=== PATIENT | female | born 1995 | race American Indian/Alaskan Native ===

== ENCOUNTER 2019-03-31 00:40 | Inpatient (IN) | payer MEDICAID ==
[2019-03-31] MEDS ORDERED: LACTATED RINGERS 1,000 ML ONE (00:54)
[2019-03-31] MEDS ORDERED: AMPICILLIN/NS 2 GM/100 ML 2 GM/100 ML BAG IV ONE ×2 (00:55→01:02)
[2019-03-31] MEDS ORDERED: BRETHINE IVP PRN (01:02)
[2019-03-31] MEDS ORDERED: XYLOCAINE 2% INFILTRATI ONE (01:02)
[2019-03-31] MEDS ORDERED: SUBLIMAZE IV PRN (01:02)
[2019-03-31] MEDS ORDERED: BRETHINE SUB-Q PRN (01:02)
[2019-03-31] MEDS ORDERED: MINERAL OIL PO PRN (01:02)
[2019-03-31] MEDS ORDERED: SUBLIMAZE ONE ×2 (01:08→01:09)
[2019-03-31 01:33] LABS: Hematocrit 30.3 % (30.3-42.9); Hemoglobin 9.4 gm/dl (10.1-14.3); Mean Corpuscular HGB Conc 31 % (30-34); Mean Corpuscular Volume 77 fl (79-97); Platelet Count 356 K/mm3 (140-440); Red Blood Count 3.96 M/mm3 (3.65-5.03); Red Cell Distribution Width 19.9 % (13.2-15.2)
[2019-03-31] MEDS ORDERED: PITOCin/NS 20 UNIT/1000ML DRIP 20 UNITS/1,000 ML BAG IV SCH (02:00)
[2019-03-31] MEDS ORDERED: LACTATED RINGERS 1,000 ML IV SCH (02:00)
[2019-03-31 02:05] LABS: Hepatitis C Virus Antibody Non-Reactive (NonReactive)
--- NOTE | 2019-03-31 02:09 | History and Physical Report ---
History of Present Illness Date of examination: 03/31/19 Date of admission: 03/31/19 00:47 Chief complaint: contractions History of present illness: 23y/o @ 39+3 weeks presents with regular uterine contractions and advanced dilation. She denies leakage of fluid. The patient is a walk in patient from [facility] however records are not available. GBS status is unknown. Past History Past Medical History: other (obesity) Past Surgical History: no surgical history Social history: single - Obstetrical History Expected Date of Delivery: 04/04/19 Actual Gestation: 39 Week(s) 3 Day(s) : 2 Para: 1 Hx # Term Pregnancies: 1 Number of Pregnancies: 0 Spontaneous Abortions: 0 Induced : 0 Number of Living Children: 1 Medications and Allergies Allergies Allergy/AdvReac Type Severity Reaction Status Date / Time No Known Allergies Allergy Verified 03/31/19 00:59 Home Medications Medication Instructions Recorded Confirmed Last Taken Type Sulfamethoxazole/Trimethoprim 1 each PO BID #20 tablet 05/24/15 Unknown Rx [Bactrim Ds] Active Meds: Active Medications Ephedrine Sulfate (Ephedrine Sulfate) 10 mg IV Q2M PRN PRN Reason: Hypotension Fentanyl (Sublimaze) 100 mcg IV Q2H PRN PRN Reason: Labor Pain Ampicillin Sodium (Ampicillin/Ns 1 Gm/50 Ml) 1 gm in 50 mls @ 100 mls/hr IV Q4HR LIONEL; Protocol Lactated Ringer's (Lactated Ringers) 1,000 mls @ 125 mls/hr IV DIRECT LIONEL Oxytocin/Sodium Chloride (Pitocin/Ns 20 Unit/1000ml Drip) 20 units in 1,000 mls @ 125 mls/hr IV DIRECT LIONEL Mineral Oil (Mineral Oil) 30 ml PO QHS PRN PRN Reason: Constipation Terbutaline Sulfate (Brethine) 0.25 mg SUB-Q ONCE PRN PRN Reason: Hyperstimulation/Hypertonicity Terbutaline Sulfate (Brethine) 0.25 mg IVP ONCE PRN PRN Reason: Hyperstimulation/Hypertonicity Review of Systems All systems: negative Genitourinary: contractions, no leakage of fluid - Vital Signs Vital signs: Vital Signs Pulse BP 82 133/64 03/31/19 01:34 03/31/19 01:34 Temp Pulse Resp BP Pulse Ox 82 133/64 03/31/19 01:34 03/31/19 01:34 - Physical Exam Breasts: Positive: deferred Cardiovascular: Regular rate Lungs: Positive: Clear to auscultation Results Result Diagrams: 03/31/19 01:02 Abnormal lab results 03/31/19 Range/Units 01:02 WBC 12.8 H (4.5-11.0) K/mm3 Hgb 9.4 L (10.1-14.3) gm/dl MCV 77 L (79-97) fl MCH 24 L (28-32) pg RDW 19.9 H (13.2-15.2) % All other labs normal. Assessment and Plan - Patient Problems (1) Active labor at term Current Visit: Yes Status: Acute Plan to address problem: admit to L&D
[2019-03-31 02:34] LABS: Amphetamine Screen,Urine PRESUMPTIVE NEGATIVE; Benzodiazepines Screen,Urine PRESUMPTIVE NEGATIVE; Cannabinoid Screen,Urine PRESUMPTIVE NEGATIVE; Cocaine Screen,Urine PRESUMPTIVE NEGATIVE; Methadone Screen,Urine PRESUMPTIVE NEGATIVE; Opiate Screen,Urine PRESUMPTIVE NEGATIVE
[2019-03-31] MEDS ORDERED: NARCAN 2 MG/2 ML IV PRN (02:56)
--- NOTE | 2019-03-31 02:59 | Anesthesia Day of Surgery ---
Anesthesia Day of Surgery - Day of Surgery Patient Examined: Yes Patient H&P Reviewed: Yes Patient is NPO: Yes Beta Blockers: No Cardiac Clearance: No Pulmonary Clearance: No Rodney's Test: N/A
[2019-03-31] MEDS ORDERED: fentaNYL-BUPIV 2 MCG/ML-0.125% 200 MCG/100 ML BAG EPIDURAL SCH (03:00)
--- NOTE | 2019-03-31 03:00 | Anesthesia Consultation ---
Anesthesia Consult and Med Hx Date of service: 03/31/19 - Airway Anesthetic Teeth Evaluation: Good ROM Head & Neck: Adequate Mental/Hyoid Distance: Adequate Mallampati Class: Class III Intubation Access Assessment: Probably Good - Pulmonary Exam CTA: Yes - Cardiac Exam Cardiac Exam: RRR - Pre-Operative Health Status ASA Pre-Surgery Classification: ASA3 Proposed Anesthetic Plan: Epidural - Pulmonary Hx Smoking: No Hx Asthma: No Hx Respiratory Symptoms: No SOB: No COPD: No Home Oxygen Therapy: No Hx Pneumonia: No Hx Sleep Apnea: No - Cardiovascular System Hx Hypertension: No Hx Coronary Artery Disease: No Hx Heart Attack/AMI: No Hx Angina: No Hx Percutaneous Transluminal Coronary Angioplasty (PTCA): No Hx Cardia Arrhythmia: No Hx Pacemaker: No Hx Internal Defibrillator: No Hx Valvular Heart Disease: No Hx Heart Murmur: No Hx Peripheral Vascular Disease: No - Central Nervous System Hx Neuromuscular Disorder: No Hx Seizures: No CVA: No Hx Back Pain: Yes Hx Psychiatric Problems: No - Gastrointestinal Hx Ulcer: No Hx Gastroesophageal Reflux Disease: Yes - Endocrine Hx Renal Disease: No Hx End Stage Renal Disease: No Hx Cirrhosis: No Hx Liver Disease: No Hx Insulin Dependent Diabetes: No Hx Non-Insulin Dependent Diabetes: No Hx Thyroid Disease: No Hx Hypothyroidism: No Hx Hyperthyroidism: No - Hematic Hx Anemia: No Hx Sickle Cell Disease: No - Other Systems Hx Alcohol Use: No Hx Substance Use: No Hx Cancer: No Hx Obesity: Yes
[2019-03-31] MEDS ORDERED: PITOCin/NS 30 UNIT/500ML 30,000 MILLIUNITS/500 ML BAG IV ONE (03:32)
[2019-03-31] MEDS ORDERED: TYLENOL PO PRN (03:57)
[2019-03-31] MEDS ORDERED: DULCOLAX PR PRN (03:57)
[2019-03-31] MEDS ORDERED: TUCKS PAD TP PRN (03:57)
[2019-03-31] MEDS ORDERED: ZOFRAN IV PRN (03:57)
[2019-03-31] MEDS ORDERED: LANSINOH TP PRN (03:57)
[2019-03-31] MEDS ORDERED: PHENERGAN PO PRN (03:57)
[2019-03-31] MEDS ORDERED: PHENERGAN PR PRN (03:57)
[2019-03-31] MEDS ORDERED: BENADRYL PO PRN (03:57)
[2019-03-31] MEDS ORDERED: MILK OF MAGNESIA PO PRN (03:57)
--- NOTE | 2019-03-31 03:57 | Procedure Note ---
OB Delivery Note - Delivery Date of Delivery: 03/31/19 Surgeon: HERRERA KHALIL Estimated blood loss: 200cc - Vaginal Delivery presentation: vertex Delivery position: OA Delivery augmentation: rupture of membranes, pitocin Delivery monitor: external FHT Route of delivery: Delivery placenta: spontaneous Delivery cord: 3 umbilical vessels Episiotomy: none Delivery laceration: none Anesthesia: epidural Delivery comments: The patient progressed to complete complete +2 and pushed to deliver a liveborn male infant with Apgars of 9 and 9 weight 9 lbs. 9 oz. After delivery of head the shoulder was delivered with facilitation of the Liat maneuver. The cord was clamped and cut 2 and the was bulb suctioned. He was placed on the warmer for further evaluation. The placenta delivered spontaneously intact with a three-vessel cord. No lacerations were noted. Estimated blood loss 200 mL - Infant A at 1 minute: 9 at 5 minutes: 9 Infant Gender: Male (weight 9 lbs. 9 oz.)
[2019-03-31] MEDS ORDERED: SODIUM CHLORIDE FLUSH SYRINGE 10 ML IV PRN (04:00)
[2019-03-31] MEDS: IBUPROFEN PO SCH ×3 (04:46→20:19)
[2019-03-31] MEDS ORDERED: AMPICILLIN/NS 1 GM/50 ML 1 GM/50 ML BAG IV SCH (05:03)
[2019-03-31] MEDS: NORCO 5/325 PO PRN ×3 (06:24→20:18)
[2019-03-31 17:07] LABS: Hematocrit 25.4 % (30.3-42.9); Hemoglobin 7.9 gm/dl (10.1-14.3)
[2019-04-01] MEDS: IBUPROFEN PO SCH ×2 (01:57→13:53)
[2019-04-01] MEDS: NORCO 5/325 PO PRN ×2 (01:57→08:32)
--- NOTE | 2019-04-01 12:02 | Progress Note ---
Assessment and Plan - Patient Problems (1) Active labor at term Current Visit: Yes Status: Acute Plan to address problem: routine care discharge home tomorrow Subjective - Subjective Date of service: 04/01/19 Interval history: Patient without difficulty. Pain is better controlled Patient reports: appetite normal, voiding normally, pain well controlled : doing well, nursing well Objective - Vital Signs Latest vital signs: Vital Signs Temp Pulse Resp BP BP Pulse Ox 04/01/19 08:00 98.1 F 79 18 130/66 04/01/19 01:57 18 04/01/19 00:30 98.7 F 78 18 121/78 03/31/19 20:19 18 03/31/19 20:18 18 03/31/19 20:00 98.7 F 70 18 114/78 03/31/19 15:41 98.1 F 80 20 128/78 99 03/31/19 12:02 98.1 F 85 20 125/61 99 Intake and Output 03/31/19 04/01/19 04/01/19 22:59 06:59 14:59 Intake Total 540 600 360 Balance 540 600 360 Intake: Oral 240 360 Intake, Free Water 300 600 Other: Total, Intake Amount 240 360 # Voids Void 1 1 - Exam Abdomen: Present: normal appearance Uterus: Present: normal, firm - Labs Labs: Abnormal lab results 03/31/19 Range/Units 16:56 Hgb 7.9 L (10.1-14.3) gm/dl Hct 25.4 L (30.3-42.9) %
--- NOTE | 2019-04-01 12:05 | Discharge Summary ---
Providers - Providers Date of Admission: 03/31/19 00:47 Date of discharge: 04/02/19 Attending physician: HERRERA KHALIL Primary care physician: [employer]LY[employer] Hospitalization Reason for admission: active labor Delivery: Discharge diagnosis: IUP at term delivered Hospital course: Patient admitted in active labor. [facility] [place]. s/p . uncomplicated Condition at discharge: Good Disposition: DC-01 TO HOME OR SELFCARE - Discharge Diagnoses (1) Active labor at term Status: Acute Plan - Discharge Medications Prescriptions: Ibuprofen [Motrin] 800 mg PO Q8HR PRN #60 tablet PRN Reason: Pain, Mild (1-3) HYDROcodone/APAP 5-325 [[place] 5/325] 1 each PO Q6HR PRN #20 tablet PRN Reason: Pain - Provider Discharge Summary Activity: no sex for 6 weeks, no strenuous exercise Diet: routine Instructions: routine Additional instructions: [] Smoking cessation referral if applicable(refer to patient education folder for contact #) [] Refer to [employer] Booklet Call your doctor immediately for: * Fever > 100.5 * Heavy vaginal bleeding ( >1 pad per hour) * Severe persistent headache * Shortness of breath * Reddened, hot, painful area to leg or breast * schedule visit in 4 weeks - Follow up plan
[2019-04-02] MEDS: IBUPROFEN PO SCH ×3 (06:14→10:06)
[2019-04-02 13:38] VITALS: BP 134/69
== END 2019-04-02 14:00 | disposition home or self-care (01) | DRG 775 ==
LOC: TRG 00:40 → LD 00:47 → TRG 00:47 → OB 05:34
PROVIDERS: ADMIT Obstetrics & Gynecology; ATTEND Obstetrics & Gynecology
PROC: 10E0XZZ Delivery of Products of Conception, External Approach (ICD-10-PCS; principal; 2019-03-31)
PROC: 3E0R3BZ Introduction of Anesthetic Agent into Spinal Canal, Percutaneous Approach (ICD-10-PCS; 2019-03-31)
PROC: 00HU33Z Insertion of Infusion Device into Spinal Canal, Percutaneous Approach (ICD-10-PCS; 2019-03-31)
DX: O99.62 Diseases of the digestive system complicating childbirth (principal); O99.214 Obesity complicating childbirth; E66.9 Obesity, unspecified; K21.9 Gastro-esophageal reflux disease without esophagitis; Z3A.39 39 weeks gestation of pregnancy; Z37.0 Single live birth
CPT/HCPCS: 36415; 80307; 85014; 85018; 85027; 86592; 86706; 86762; 86803; 86850; 86900; 86901; 87806; G0378; A6250; J0290; J2590; J3010; J7120